=== PATIENT | female | born 1990 | race Caucasian/White ===

== ENCOUNTER 2016-05-30 16:52 | Emergency (ER) | payer MEDICAID ==
[2016-05-30 18:35] LABS: BASOPHILS 0.8 % (0.0-2.0); EOSINOPHILS 1.6 % (0-7); HEMATOCRIT 43.1 % (36.0-48.0); HEMOGLOBIN 13.6 g/dL (12-16); LYMPHOCYTES 20.8 % (15-50); MCH 27.3 pg (26.0-34.0); MCHC 31.6 g/dL (31.0-37.0); MCV 86.4 fL (80.0-100.0); MONOCYTES 9.8 % (2-11); PLATELET COUNT 326 10x3/uL (130-400); RBC 4.99 10x6/uL (4.00-5.40); WBC 6.5 10x3/uL (4.8-10.8)
[2016-05-30 19:07] LABS: APPEARANCE CLEAR (CLEAR); COLOR YELLOW (YELLOW)
[2016-05-30 19:08] LABS: BILIRUBIN NEGATIVE (NEGATIVE); GLUCOSE NEGATIVE (NEGATIVE); KETONE NEGATIVE (NEGATIVE); LEUKOCYTE ESTERASE NEGATIVE (NEGATIVE); NITRITE NEGATIVE (NEGATIVE); PROTEIN NEGATIVE (NEGATIVE); UROBILINOGEN NORMAL (NORMAL)
[2016-05-30 19:12] LABS: HCG URINE NEGATIVE (NEGATIVE)
[2016-05-30 19:23] LABS: UDS - AMPHET NEGATIVE QUAL (NEGATIVE); UDS - BARB NEGATIVE QUAL (NEGATIVE); UDS - BENZO NEGATIVE QUAL (NEGATIVE); UDS - COCAINE NEGATIVE QUAL (NEGATIVE); UDS - METH NEGATIVE QUAL (NEGATIVE); UDS - OPIATE NEGATIVE QUAL (NEGATIVE); UDS - PCP NEGATIVE QUAL (NEGATIVE); UDS - THC POSITIVE QUAL (NEGATIVE)
[2016-05-30 19:45] LABS: ALBUMIN 4.3 g/dL (3.4-5.0); ALKALINE PHOSPHATASE 36 U/L (46-116); ALT (SGPT) 19 U/L (10-68); BILIRUBIN - TOTAL 0.99 mg/dL (0.2-1.3); CALC OSMOLALITY 283 mosm/kg (275-300); CALCIUM 9.5 mg/dL (8.5-10.1); CARBON DIOXIDE 30.8 mmol/L (21.0-32.0); CHLORIDE - SERUM 103 mmol/L (98-107); CREATININE - SERUM 0.9 mg/dL (0.6-1.3); GLUCOSE 108 mg/dL (74-106); POTASSIUM - SERUM 4.2 mmol/L (3.5-5.1); PROTEIN - SERUM 7.7 g/dL (6.4-8.2); SODIUM 141 mmol/L (136-145); UREA NITROGEN 18 mg/dL (7-18); eGFR NON AFRICAN AMERICAN 80 mL/min (90-120)
== END 2016-05-30 20:31 | disposition home or self-care (01) ==
LOC: D.ER 16:52
PROVIDERS: Nurse Practitioner Family
DX: R42 Dizziness and giddiness (principal); F41.9 Anxiety disorder, unspecified; R53.83 Other fatigue

== ENCOUNTER → 2016-12-30 08:27 | Outpatient (CLI) | payer MEDICAID | END | disposition home or self-care (01) | LOC: D.MRI 12-29 13:00 | DX: M51.26 Other intervertebral disc displacement, lumbar region (principal); M51.27 Other intervertebral disc displacement, lumbosacral region ==

== ENCOUNTER → 2017-01-31 19:25 | Outpatient (CLI) | payer MEDICAID | END | disposition home or self-care (01) | LOC: D.SLEEP 19:25 | DX: G47.36 Sleep related hypoventilation in conditions classified elsewhere (principal) ==

== ENCOUNTER → 2018-11-16 15:01 | Outpatient (CLI) | payer OTHER | END | disposition home or self-care (01) | LOC: D.RT 15:01 | PROVIDERS: ATTEND Nurse Practitioner | DX: R06.02 Shortness of breath (principal) ==